=== PATIENT | male | born 1995 | race Hispanic/Latino ===

== ENCOUNTER 2019-08-03 23:59 | Emergency (ER) | payer OTHER ==
[2019-08-04] MEDS ORDERED: HYDROXYZINE HCL 10MG/5ML SYRUP 5ML BOTTLE ONE (01:03)
== END 2019-08-04 03:38 | disposition home or self-care (01) ==
LOC: EDH 23:59
DX: F41.9 Anxiety disorder, unspecified (principal); F32.9 Major depressive disorder, single episode, unspecified